=== PATIENT | female | born 1975 ===

== ENCOUNTER 2019-07-02 05:49 | Inpatient (IN) ==
[2019-06-25 12:42] LABS: Basophils % 0.1 % (0.0-0.8); Eosinophils % 0.3 % (0.00-10.9); Hemoglobin 14.3 GM/DL (12.0-16.0); Immature Granulocytes % 0.3 %; Immature Granulocytes Absolute 0.03 #; Lymphocytes # 1.5 10*3/uL (1.4-4.0); Lymphocytes % 15.5 % (21.3-54.2); Mean Corpuscular HGB Conc 32.5 GM/DL (32-36); Mean Corpuscular Volume 93.4 FL (87-102); Mean Platelet Volume 10.8 FL (9.6-12.0); Monocytes % 3.9 % (1.7-12.7); Neutrophils % 79.9 % (38.7-73.9); Platelet Count 304 T/CUMM (130-400); Red Blood Count 4.71 MC/CUMM (3.8-5.5); Red Cell Distribution Width 12.8 % (9.3-17.3); White Blood Count 9.4 T/CUMM (4-12)
[2019-06-25 12:49] LABS: Apearance,Urine Slightly Hazy (Clear); Bacteria,Urine Occasional /HPF (Few); Bilirubin,Urine Negative (Negative); Blood, Urine Moderate mg/dL (Negative); Glucose,Urine (UA) Negative (Negative); Ketones,Urine Negative (Negative); Mucus,Urine Moderate /LPF (Occasional); Nitrite,Urine Negative (Negative); Protein,Urine 30 MG/DL; RBC,Urine 6 /HPF (0-4); Squamous Epithelial Cell,Urine Occasional /HPF (0-10); Urine Color Yellow (Yellow); Urine Specific Gravity 1.026 (1.001-1.035); Urine Urobilinogen < 2.0 EU/DL (0.2-1.0); WBC,Urine 11 /HPF (0-6)
[2019-06-25 13:24] LABS: Albumin 3.7 G/DL (3.4-5.0); Bilirubin,Total 0.5 MG/DL (0.2-1.0); Calcium 9.1 MG/DL (8.5-10.1); Osmolality,Calculated 281.7 MOS/KG (273-304); Risk Ratio 6.32; Total Protein 7.6 G/DL (6.4-8.3); VLDL CHOLESTEROL 40.6 MG/DL
[2019-06-25 14:11] LABS: HIV Antigen/Antibody Result Nonreactive (Nonreactive)
[~2019-07-02 05:49] MED LIST: AMPICILLIN/SULBACTAM 3,000 MG in SODIUM CHLORIDE 0.9% 100 ML IV ONE
[2019-07-02] MEDS ORDERED: FAMOTIDINE 20 MG TABLET PO ONE (06:00)
[2019-07-02] MEDS ORDERED: ACETAMINOPHEN 500 MG TABLET PO ONE (06:00)
[2019-07-02] MEDS ORDERED: DIAZEPAM 5 MG TABLET PO ONE (06:00)
[2019-07-02] MEDS ORDERED: AMPICILLIN/SULBACTAM 3,000 MG VIAL ONE (06:17)
[2019-07-02] MEDS: LACTATED RINGERS 1,000 ML IV SCH ×4 (06:41→16:27)
[2019-07-02] MEDS ORDERED: FAMOTIDINE 20 MG TABLET ONE (06:42)
[2019-07-02] MEDS ORDERED: ACETAMINOPHEN 500 MG TABLET ONE (06:42)
[2019-07-02] MEDS ORDERED: DIAZEPAM 5 MG TABLET ONE (06:42)
[2019-07-02] MEDS ORDERED: ONDANSETRON 4 MG/2 ML VIAL IV PRN (09:35)
[2019-07-02] MEDS ORDERED: BENZOCAINE/MENTHOL LOZENGE 18/BOX PO PRN (09:35)
[2019-07-02] MEDS ORDERED: BISACODYL 10 MG SUPP RECTAL PRN (09:35)
[2019-07-02] MEDS ORDERED: ACETAMINOPHEN 325 MG TABLET PO PRN (09:35)
[2019-07-02 09:51] LABS: Apearance,Urine CLEAR (Clear); Bilirubin,Urine Negative (Negative); Blood, Urine Negative (Negative); Glucose,Urine (UA) Negative (Negative); Hyaline Casts,Urine 1 /LPF (0-3); Ketones,Urine Negative (Negative); Mucus,Urine Occasional /LPF (Occasional); Nitrite,Urine Negative (Negative); Protein,Urine Negative; RBC,Urine 1 /HPF (0-4); Squamous Epithelial Cell,Urine Occasional /HPF (0-10); Urine Color Yellow (Yellow); Urine Specific Gravity 1.014 (1.001-1.035); Urine Urobilinogen < 2.0 EU/DL (0.2-1.0); WBC,Urine <1 /HPF (0-6)
[2019-07-02] MEDS ORDERED: LIDOCAINE 2% 5 ML VIAL ONE (09:54)
[2019-07-02] MEDS ORDERED: LABETALOL 20 MG/4 ML SYRINGE IV ONE ×3 (09:54→11:26)
[2019-07-02] MEDS ORDERED: SEVOFLURANE 1 UNIT/15 MINUTE INH ONE (09:54)
[2019-07-02] MEDS ORDERED: ALBUMIN 5% 12.5 GM/250 ML VIAL IV ONE (09:54)
[2019-07-02] MEDS ORDERED: DEXAMETHASONE 4 MG/1 ML VIAL ONE (09:55)
[2019-07-02] MEDS ORDERED: GLYCOPYRROLATE 0.4 MG/2 ML VIAL ONE (09:55)
[2019-07-02] MEDS ORDERED: PHENYLEPHRINE 1 MG/10 ML SYRINGE IV ONE (09:55)
[2019-07-02] MEDS ORDERED: ONDANSETRON 4 MG/2 ML VIAL ONE (09:55)
[2019-07-02] MEDS ORDERED: MIDAZOLAM 2 MG/2 ML VIAL ONE (09:55)
[2019-07-02] MEDS ORDERED: fentaNYL 100 MCG/2 ML VIAL ONE (09:55)
[2019-07-02] MEDS ORDERED: HYDROmorphone 2 MG/1 ML VIAL ONE (09:55)
[2019-07-02] MEDS ORDERED: NEOSTIGMINE 10 MG/10 ML VIAL ONE (09:56)
[2019-07-02] MEDS ORDERED: ROCURONIUM 100 MG/10 ML VIAL IV ONE (09:56)
[2019-07-02] MEDS ORDERED: LACTATED RINGERS 1,000 ML IV ONE (09:56)
[2019-07-02] MEDS ORDERED: SUCCINYLCHOLINE 200 MG/10 ML VIAL ONE (09:56)
[2019-07-02] MEDS ORDERED: KETOROLAC 30 MG/1 ML VIAL ONE (09:57)
[2019-07-02] MEDS ORDERED: ROPIVACAINE 0.5% 30 ML VIAL ONE (10:21)
[2019-07-02] MEDS: HYDROmorphone 2 MG/1 ML VIAL IV PRN ×5 (11:00→19:47)
[2019-07-02] MEDS ORDERED: DEXTROSE 50% 25 GM/50 ML VIAL IV PRN (13:07)
[2019-07-02] MEDS ORDERED: GLUCAGON 1 MG VIAL IM PRN (13:07)
[2019-07-02] MEDS: hydrALAZINE 20 MG/1 ML VIAL IV PRN ×2 (13:16→13:27)
[2019-07-02] MEDS ORDERED: ceFAZolin 1,000 MG in SYRINGE 1 EACH IV SCH (15:35)
[2019-07-02] MEDS: ceFAZolin 1,000 MG in SYRINGE 1 EACH IV SCH ×2 (16:18→23:13)
[2019-07-02] MEDS ORDERED: INFLUENZA VIRUS VACCINE 0.5 ML SYRINGE IM ONE (16:53)
[2019-07-02] MEDS ORDERED: guaiFENesin 200 MG/10 ML UDCUP PO PRN (18:06)
[2019-07-02 18:43] LABS: Basophils % 0.1 % (0.0-0.8); Hematocrit 35.7 VOL% (35.7-47.0); Hemoglobin 11.7 GM/DL (12.0-16.0); Immature Granulocytes % 0.4 %; Immature Granulocytes Absolute 0.07 #; Lymphocytes # 1.1 10*3/uL (1.4-4.0); Lymphocytes % 6.5 % (21.3-54.2); Mean Corpuscular HGB Conc 32.8 GM/DL (32-36); Mean Corpuscular Volume 92.7 FL (87-102); Mean Platelet Volume 10.9 FL (9.6-12.0); Monocytes % 4.1 % (1.7-12.7); Neutrophils % 88.9 % (38.7-73.9); Platelet Count 303 T/CUMM (130-400); Red Blood Count 3.85 MC/CUMM (3.8-5.5); Red Cell Distribution Width 13.2 % (9.3-17.3); White Blood Count 17.5 T/CUMM (4-12)
[2019-07-03] MEDS: LACTATED RINGERS 1,000 ML IV SCH (00:34)
[2019-07-03] MEDS: IBUPROFEN 800 MG TABLET PO PRN ×3 (00:57→19:50)
[2019-07-03 06:03] LABS: Basophils % 0.1 % (0.0-0.8); Eosinophils % 0.1 % (0.00-10.9); Hematocrit 35.3 VOL% (35.7-47.0); Hemoglobin 11.4 GM/DL (12.0-16.0); Immature Granulocytes % 0.4 %; Immature Granulocytes Absolute 0.04 #; Lymphocytes # 1.9 10*3/uL (1.4-4.0); Lymphocytes % 17.6 % (21.3-54.2); Mean Corpuscular HGB Conc 32.3 GM/DL (32-36); Mean Corpuscular Volume 93.6 FL (87-102); Mean Platelet Volume 10.7 FL (9.6-12.0); Monocytes % 6.1 % (1.7-12.7); Neutrophils % 75.7 % (38.7-73.9); Platelet Count 292 T/CUMM (130-400); Red Blood Count 3.77 MC/CUMM (3.8-5.5); Red Cell Distribution Width 13.3 % (9.3-17.3); White Blood Count 10.8 T/CUMM (4-12)
[2019-07-03] MEDS: DOCUSATE SODIUM 100 MG CAPSULE PO PRN ×2 (07:35→19:54)
[2019-07-03] MEDS: METOCLOPRAMIDE 10 MG TABLET PO PRN ×2 (07:35→19:50)
[2019-07-03] MEDS: metFORMIN 500 MG TABLET PO SCH ×2 (08:42→18:10)
[2019-07-03] MEDS: LOSARTAN 50 MG TABLET PO SCH (08:42)
[2019-07-03] MEDS: MAGNESIUM HYDROXIDE SUSP 30 ML UDCUP PO PRN ×2 (12:44→19:54)
[2019-07-04] MEDS: IBUPROFEN 800 MG TABLET PO PRN (05:55)
[2019-07-04] MEDS: LOSARTAN 50 MG TABLET PO SCH (06:13)
[2019-07-04] MEDS ORDERED: hydroCHLOROthiazide 25 MG TABLET PO ONE (06:23)
[2019-07-04] MEDS ORDERED: ESTRADIOL VALERATE IM 100 MG/5 ML VIAL IM ONE (06:23)
[2019-07-04 07:52] VITALS: BP 144/84
[2019-07-04] MEDS: MAGNESIUM HYDROXIDE SUSP 30 ML UDCUP PO PRN (08:48)
[2019-07-04] MEDS: DOCUSATE SODIUM 100 MG CAPSULE PO PRN (08:48)
[2019-07-04] MEDS: metFORMIN 500 MG TABLET PO SCH (08:48)
[2019-07-04] MEDS: METOCLOPRAMIDE 10 MG TABLET PO PRN (08:48)
== END 2019-07-04 12:20 | disposition home or self-care (01) | DRG 743 ==
LOC: N.OR 05:49 → N.SDSINP 05:49 → N.OB 09:34
PROVIDERS: ADMIT Obstetrics & Gynecology; ATTEND Obstetrics & Gynecology